=== PATIENT | female | born 1980 | race Caucasian/White ===

== ENCOUNTER 2017-01-03 07:09 | Day surgery (SDC) | payer BC ==
[~2017-01-03 07:09] MED LIST: Sodium Chloride 0.9% 10 ML Syringe FLUSH PRN; Sodium Chloride 0.9% 2.5 ML Syringe FLUSH PRN; ceFAZolin 1 GM in Premix Bag 1 BAG IV ONE
[2017-01-03] MEDS ORDERED: Scopolamine 1.5 MG Transdermal Patch TRDERM PRN (07:25)
[2017-01-03] MEDS ORDERED: fentaNYL 100 MCG/2 ML SDV ONE (07:26)
[2017-01-03] MEDS ORDERED: Rocuronium 10 MG/ML 10 ML Syringe ONE (07:26)
[2017-01-03] MEDS ORDERED: Propofol 200 MG/20 ML SDV ONE (07:26)
[2017-01-03] MEDS ORDERED: Lidocaine 2% 5 ML SDV ONE (07:26)
[2017-01-03] MEDS ORDERED: HYDROmorphone 2 MG/ML Syringe ONE (07:26)
[2017-01-03] MEDS ORDERED: Midazolam 1 MG/ML 2 ML SDV ONE (07:26)
[2017-01-03] MEDS ORDERED: Ondansetron 4 MG/2 ML SDV ONE (07:26)
[2017-01-03] MEDS ORDERED: Acetaminophen 1,000 MG in Premix Bag 1 BAG IV SCH (07:30)
[2017-01-03] MEDS ORDERED: diphenhydrAMINE 50 MG/ML SDV ONE (07:33)
[2017-01-03] MEDS ORDERED: Dexamethasone 4 MG/ML 5 ML MDV ONE (07:33)
[2017-01-03] MEDS ORDERED: Fluorescein 5 ML Vial ONE (07:36)
[2017-01-03] MEDS: Lactated Ringers 1,000 ML IV SCH ×3 (07:43→17:21)
--- NOTE | 2017-01-03 07:51 | PCM.PREANE ---
Preanesthetic Assessment - Anesthesia/Transfusion/Family Hx Anesthesia History: Prior Anesthesia Without Reaction Family History of Anesthesia Reaction: No Transfusion History: No Prior Transfusion(s) Intubation History: Unknown - Review of Systems General: No Symptoms Pulmonary: No Symptoms Cardiovascular: No Symptoms Gastrointestinal: No Symptoms Neurological: No Symptoms Other: Reports: None - Physical Assessment O2 Sat by Pulse Oximetry: 99 Respiratory Rate: 16 Vital Signs: Last Vital Signs Temp 37.2 C 01/03/17 07:31 Pulse 72 01/03/17 07:31 Resp 16 01/03/17 07:31 BP 119/78 01/03/17 07:31 Pulse Ox 99 01/03/17 07:31 Height: 1.83 m Weight: 78.471 kg ASA Class: 2 Mental Status: Alert & Oriented x3 Airway Class: Mallampati = 2 Dentition: Reports: Normal Dentition Thyro-Mental Finger Breadths: 3 Mouth Opening Finger Breadths: 3 ROM/Head Extension: Full Lungs: Clear to Auscultation, Normal Respiratory Effort Cardiovascular: Regular Rate, Regular Rhythm - Allergies Allergies/Adverse Reactions: Allergies Allergy/AdvReac Type Severity Reaction Status Date / Time No Known Allergies Allergy Verified 07/08/15 13:18 - Blood Blood Available: No - Anesthesia Plan Pre-Op Medication Ordered: None - Acknowledgements Anesthesia Type Planned: General Anesthesia Pt an Appropriate Candidate for the Planned Anesthesia: Yes Alternatives and Risks of Anesthesia Discussed w Pt/Guardian: Yes Pt/Guardian Understands and Agrees with Anesthesia Plan: Yes PreAnesthesia Questionnaire Respiratory History: Reports: Asthma Other Respiratory History: sports induced asthma in highschool Gastrointestinal History: Reports: None Genitourinary History: Reports: Hydronephrosis, Other (See Below) Other Genitourinary History: hydronephrosis during [employer] History: Reports: , Other (See Below) Other OB/BYN History: trouble with bleeding after both vaginal deliveries Neurological History: Reports: Migraines Hematologic History: Reports: Other (See Below) Other Hematologic History: trouble with bleeding after both vaginal deliveries - Past Surgical History Head Surgeries/Procedures: Reports: None GI Surgical History: Reports: Cholecystectomy Female Surgical History: Reports: Breast Implant, D&C, Other (See Below) Other Female Surgeries/Procedures: double J stent insertion and removal, suction D&C Musculoskeletal Surgical History: Reports: Arthroscopic Knee Other Musculoskeletal Surgeries/Procedures:: winston knee arthroscopy, rt ACl repair - SUBSTANCE USE Smoking Status *Q: Never Smoker Recreational Drug Use History: No - HOME MEDS Home Medications: Home Meds Topiramate [Topamax] 50 mg PO BID 12/28/16 [History] - CURRENT (IN HOUSE) MEDS Current Meds: Current Medications Acetaminophen 1,000 mg/ Premix 100 mls @ 400 mls/hr IV .ONETIME [facility] Lactated Ringer's (Ringers, Lactated) 1,000 mls @ 125 mls/hr IV ASDIRECTED [facility] Last Admin: 01/03/17 07:43 Dose: 125 mls/hr Scopolamine (Transderm-Scop) 1.5 mg TRDERM .ONCE PRN PRN Reason: Post Op Nausea Sodium Chloride (Saline Flush) 10 ml FLUSH ASDIRECTED PRN PRN Reason: Keep Vein Open Sodium Chloride (Saline Flush) 2.5 ml FLUSH ASDIRECTED PRN PRN Reason: Keep Vein Open Discontinued Medications Dexamethasone (Dexamethasone) Confirm Administered Dose 20 mg .ROUTE .STK-MED ONE Stop: 01/03/17 07:34 Diphenhydramine HCl (Benadryl) Confirm Administered Dose 50 mg .ROUTE .STK-MED ONE Stop: 01/03/17 07:34 Fentanyl (Sublimaze) Confirm Administered Dose 100 mcg .ROUTE .STK-MED ONE Stop: 01/03/17 07:27 Fluorescein Sodium (Ak-Fluor) Confirm Administered Dose 5 ml .ROUTE .STK-MED ONE Stop: 01/03/17 07:37 Hydromorphone HCl (Dilaudid) Confirm Administered Dose 2 mg .ROUTE .STK-MED ONE Stop: 01/03/17 07:27 Cefazolin Sodium/Dextrose 1 gm (/ Premix) 50 mls @ 100 mls/hr IV ONETIME ONE Stop: 01/03/17 05:29 Cefazolin Sodium/Dextrose (Ancef) Confirm Administered Dose 50 mls @ as directed .ROUTE .STK-MED ONE Stop: 01/03/17 07:34 Lidocaine (Xylocaine-Mpf 2%) Confirm Administered Dose 5 ml .ROUTE .STK-MED ONE Stop: 01/03/17 07:27 Midazolam HCl (Versed 1 Mg/Ml) Confirm Administered Dose 2 mg .ROUTE .STK-MED ONE Stop: 01/03/17 07:27 Ondansetron HCl (Zofran) Confirm Administered Dose 4 mg .ROUTE .STK-MED ONE Stop: 01/03/17 07:27 Propofol (Diprivan 20 Ml) Confirm Administered Dose 200 mg .ROUTE .STK-MED ONE Stop: 01/03/17 07:27 Rocuronium [place] (Zemuron) Confirm Administered Dose 100 mg .ROUTE .STK-MED ONE Stop: 01/03/17 07:27
[2017-01-03 08:16] LABS: CHLORIDE,CL 113 mmol/L (98-110); SODIUM,NA 139 mmol/L (136-146)
[2017-01-03] MEDS ORDERED: Ketorolac 30 MG/ML SDV ONE (08:55)
[2017-01-03] MEDS ORDERED: Furosemide 40 MG/4 ML VIAL ONE (09:31)
[2017-01-03] MEDS ORDERED: Promethazine 25 MG/ML SDV IM PRN (10:00)
[2017-01-03] MEDS ORDERED: Aluminum Hydroxide/Magnesium Hydroxide/Simethicone Susp 30 ML Cup PO PRN (10:00)
[2017-01-03] MEDS ORDERED: Ondansetron 4 MG/2 ML SDV IVPUSH PRN (10:00)
[2017-01-03] MEDS ORDERED: Morphine 2 MG/ML Syringe IVPUSH PRN (10:00)
[2017-01-03] MEDS ORDERED: Morphine 4 MG/ML Syringe IVPUSH PRN (10:00)
[2017-01-03] MEDS ORDERED: Acetaminophen/oxyCODONE 325-5 MG Tab PO PRN ×2 (10:00)
[2017-01-03] MEDS ORDERED: Ketorolac 30 MG/ML SDV IVPUSH ONE (10:00)
--- NOTE | 2017-01-03 10:09 | PCM.OPNOTE ---
- General Post-Op/Procedure Note Date of Surgery/Procedure: 01/03/17 Operative Procedure(s): Total vaginal hysterectomy/cystoscopy Findings: 8 week boggy uterus, normal appearing tubes/ovaries. Bilateral patent ureters Pre Op Diagnosis: Menorrhagia Post-Op Diagnosis: Same Anesthesia Technique: General ET Tube Primary Surgeon: Ly Quispe Senior Geotechnical Engineer: Shruti Hernandez Pathology: uterus Fluid Replacement, Intraop: 2,300 EBL in mLs: 200 Complications: None known Condition: Good Free Text/Narrative:: Dictation [id number]
[2017-01-03] MEDS: fentaNYL 100 MCG/2 ML SDV IVPUSH PRN ×2 (10:14→10:21)
--- NOTE | 2017-01-03 11:18 | PCM.POSTAN ---
POST ANESTHESIA ASSESSMENT - MENTAL STATUS Mental Status: Alert, Oriented - RESPIRATORY Respiratory Status: Respiratory Rate WNL, Airway Patent, O2 Saturation Stable - CARDIOVASCULAR CV Status: Pulse Rate WNL, Blood Pressure Stable - GASTROINTESTINAL GI Status: No Symptoms - PAIN Pain Score: 3 - POST OP HYDRATION Hydration Status: Adequate & Stable - OBSERVATIONS Free Text/Narrative:: no anesthesia problems
--- NOTE | 2017-01-03 12:57 | OR ---
SURGEON: Ly Quispe M.D. DATE OF PROCEDURE: 01/03/2017 PREOPERATIVE DIAGNOSIS: Menorrhagia. POSTOPERATIVE DIAGNOSIS: Menorrhagia. PROCEDURE: Total vaginal hysterectomy with cystoscopy. PROJECT ENGINEERING DIRECTOR: Shruti Hernandez M.D. ANESTHESIA: General endotracheal anesthesia. ESTIMATED BLOOD LOSS: 200 mL. FLUIDS: 2300 mL of crystalloid. FINDINGS: Boggy 8-week size uterus. Normal-appearing tubes and ovaries. Bilateral patent ureters postoperatively. DISPOSITION: The patient to PACU in stable condition. SPECIMENS: To pathology. INDICATION: Anastasia is a 36-year-old, G2, P2, who has ongoing difficulties with menorrhagia and actually was diagnosed with endometrial hyperplasia in 2016. At this time, she would like to proceed with definitive surgical intervention. Risks of the procedure have been discussed with her and proper consent obtained. DESCRIPTION OF PROCEDURE: The patient was taken to the operating room, where she underwent general endotracheal anesthesia, was placed in modified dorsal lithotomy position, was prepped and draped in the usual sterile fashion. SCDs to lower extremities and Thomason to gravity. Received Ancef prophylactically. Time-out was performed. After being draped in the usual sterile fashion, a weighted speculum was introduced in the vagina, as well as anterior Phyllis, and sidewall retractors. Cervix was grasped with Yayo clamps. Cervix was circumscribed with Bovie cautery. The anterior and posterior overlying mucosa were dissected away from underlying peritoneum. The posterior peritoneum was tented downward and entered sharply. The longer weighted speculum replaced the shorter. Anteriorly, the peritoneum was tented upward and entered sharply. Retractor was placed to deviate the bladder away from the operative field. Christian clamps were utilized to secure the uterosacral ligaments on either side, transected, and suture ligated with 2-0 Vicryl in serial fashion. The remainder of the base of the cardinal ligament and the bottom of the broad ligament were able to be secured, transected, and suture ligated. The mid-broad ligament incorporating the round ligament was now able to be secured, transected, and suture ligated. The remaining pedicle of the utero-tuboovarian region was able to be secured, transected, and suture ligated. Tubes and ovaries were inspected and appeared normal. The patient was quite oozy throughout all points of the surgery. The upper left pedicle had an area of persistent bleeding along the left utero-tuboovarian pedicle, this was secured with a [id number] suture. There was also another area of bleeding along the right uterosacral ligament. This was suture ligated with a figure-of- eight suture. Hemostasis was thereafter evident. Given the amount of oozing with the tissues, I did not feel it was prudent to remove the tubes at this time, and they do appear normal. The uterosacral ligament was now secured to the vaginal apex on either side. All packing was removed from the vagina. The cuff was closed using 0 Vicryl in continuous running locked fashion. The cuff was inspected and found to be hemostatic. The Thomason catheter was removed after the balloon was desufflated. IV fluorescein and Lasix were delivered, and the cystoscope was introduced using normal saline as distention media. The dome of the bladder was able to be visualized followed by the trigone. The right ureteral orifice followed by the left ureteral orifice were able to be visualized and fluorescein dyed urine was seen streaming from them, helping to ensure ureteral patency. The bladder was now drained. Catheter was replaced. The vaginal cuff was once again inspected and found to be hemostatic. The patient had tolerated the procedure well. Sponge, instrument, and needle counts were correct x2. The patient will go to PACU in a stable condition and specimens to pathology. JUSTO DAVIES /[id number] MTDRachid
[2017-01-03] MEDS: Ketorolac 30 MG/ML SDV IVPUSH PRN ×2 (15:59→22:06)
--- NOTE | 2017-01-03 18:27 | PCM.SN ---
- Free Text/Narrative Note: Patient is doing well overall. Pain is controlled, but ruvalcaba is very irritating and would like to have removed. She is tolerating regular diet, ambulated within the room. VS are stable Explained findings at time of surgery and procedure. Remove ruvalcaba this evening. Continue postoperative cares. Stable overall.
[2017-01-03] MEDS: Docusate Sodium 100 MG Cap PO SCH (22:08)
[2017-01-04] MEDS: Ketorolac 30 MG/ML SDV IVPUSH PRN ×2 (04:34→10:22)
[2017-01-04 06:30] LABS: CHLORIDE,CL 114 mmol/L (98-110); SODIUM,NA 141 mmol/L (136-146)
--- NOTE | 2017-01-04 08:51 | PCM.SURGPN ---
- General Info Date of Service: 01/04/17 POD#: 1 Functional Status: Reports: Pain Controlled, Tolerating Diet, Ambulating, Urinating - Review of Systems General: Denies: Fever, Weakness Pulmonary: Denies: Shortness of Breath Cardiovascular: Denies: Chest Pain, Palpitations, Lightheadedness Gastrointestinal: Denies: Abdominal Pain, Nausea, Vomiting Genitourinary: Denies: Flank Pain Psychiatric: Reports: No Symptoms - Patient Data Vitals - Most Recent: Last Vital Signs Temp 37.4 C 01/04/17 04:00 Pulse 62 01/04/17 04:00 Resp 15 01/04/17 04:00 BP 99/58 L 01/04/17 04:00 Pulse Ox 97 01/04/17 04:00 Weight - Most Recent: 78.471 kg I&O - Last 24 Hours: Intake & Output 01/03/17 01/04/17 01/04/17 22:59 06:59 14:59 Output Total 1500 Balance -1500 Lab Results Last 24 Hrs: Laboratory Results - last 24 hr 01/04/17 01/04/17 Range/Units 05:17 05:17 WBC 10.61 (4.0-11.0) K/uL RBC 4.02 L (4.30-5.90) M/uL Hgb 12.2 (12.0-16.0) g/dL Hct 36.6 (36.0-46.0) % MCV 91.0 (80.0-98.0) fL MCH 30.3 (27.0-32.0) pg MCHC 33.3 (31.0-37.0) g/dL RDW Std Deviation 42.1 (28.0-62.0) fl RDW Coeff of Sergey 13 (11.0-15.0) % Plt Count 192 (150-400) K/uL MPV 10.20 (7.40-12.00) fL Neut % (Auto) 67.8 (48.0-80.0) % Lymph % (Auto) 22.8 (16.0-40.0) % Borden % (Auto) 8.9 (0.0-15.0) % Eos % (Auto) 0.3 (0.0-7.0) % Baso % (Auto) 0.2 (0.0-1.5) % Neut # (Auto) 7.2 H (1.4-5.7) K/uL Lymph # (Auto) 2.4 (0.6-2.4) K/uL Borden # (Auto) 0.9 H (0.0-0.8) K/uL Eos # (Auto) 0.0 (0.0-0.7) K/uL Baso # (Auto) 0.0 (0.0-0.1) K/uL Nucleated RBC % 0.0 /100WBC Nucleated RBCs # 0 K/uL Sodium 141 (136-146) mmol/L Potassium 3.8 (3.5-5.1) mmol/L Chloride 114 H (98-110) mmol/L Carbon Dioxide 20 L (21-31) mmol/L BUN 9 (6.0-23.0) mg/dL Creatinine 0.8 (0.6-1.5) mg/dL Est Cr Clr Drug Dosing 114.35 mL/min Estimated GFR (MDRD) > 60.0 ml/min Glucose 106 (60-110) mg/dL Calcium 8.4 L (8.8-10.8) mg/dL Med Orders - Current: Current Medications Al Hydroxide/Mg Hydroxide (Mag-Al Plus) 30 ml PO Q4H PRN PRN Reason: Indigestion Docusate Sodium (Colace) 100 mg PO BID [facility] Last Admin: 01/03/17 22:08 Dose: 100 mg Fentanyl (Sublimaze) 50 mcg IVPUSH .Q5MIN PRN PRN Reason: Pain Last Admin: 01/03/17 10:21 Dose: 50 mcg Acetaminophen 1,000 mg/ Premix 100 mls @ 400 mls/hr IV .ONETIME [facility] Last Admin: 01/03/17 07:53 Dose: 400 mls/hr Lactated Ringer's (Ringers, Lactated) 1,000 mls @ 125 mls/hr IV ASDIRECTED [facility] Last Admin: 01/03/17 17:21 Dose: 125 mls/hr Ketorolac Tromethamine (Toradol) 30 mg IVPUSH Q6H PRN PRN Reason: Pain (severe 7-10) Stop: 01/08/17 16:01 Last Admin: 01/04/17 04:34 Dose: 30 mg Morphine Sulfate (Morphine) 2 mg IVPUSH Q2H PRN PRN Reason: Pain (severe 7-10) Last Admin: 01/03/17 12:24 Dose: 2 mg Morphine Sulfate (Morphine) 4 mg IVPUSH Q2H PRN PRN Reason: Pain (severe 7-10) Ondansetron HCl (Zofran) 4 mg IVPUSH Q6H PRN PRN Reason: Nausea/Vomiting Oxycodone/Acetaminophen (Percocet 325-5 Mg) 1 tab PO Q4H PRN PRN Reason: Pain (moderate 4-6) Last Admin: 01/03/17 18:02 Dose: 1 tab Oxycodone/Acetaminophen (Percocet 325-5 Mg) 2 tab PO Q4H PRN PRN Reason: Pain (moderate 4-6) Promethazine HCl (Phenergan) 25 mg IM Q6H PRN PRN Reason: Nausea/Vomiting Scopolamine (Transderm-Scop) 1.5 mg TRDERM .ONCE PRN PRN Reason: Post Op Nausea Last Admin: 01/03/17 07:53 Dose: 1.5 mg Sodium Chloride (Saline Flush) 10 ml FLUSH ASDIRECTED PRN PRN Reason: Keep Vein Open Sodium Chloride (Saline Flush) 2.5 ml FLUSH ASDIRECTED PRN PRN Reason: Keep Vein Open Discontinued Medications Dexamethasone (Dexamethasone) Confirm Administered Dose 20 mg .ROUTE .STK-MED ONE Stop: 01/03/17 07:34 Diphenhydramine HCl (Benadryl) Confirm Administered Dose 50 mg .ROUTE .STK-MED ONE Stop: 01/03/17 07:34 Fentanyl (Sublimaze) Confirm Administered Dose 100 mcg .ROUTE .STK-MED ONE Stop: 01/03/17 07:27 Fluorescein Sodium (Ak-Fluor) Confirm Administered Dose 5 ml .ROUTE .STK-MED ONE Stop: 01/03/17 07:37 Furosemide (Lasix) Confirm Administered Dose 40 mg .ROUTE .STK-MED ONE Stop: 01/03/17 09:32 Hydromorphone HCl (Dilaudid) Confirm Administered Dose 2 mg .ROUTE .STK-MED ONE Stop: 01/03/17 07:27 Cefazolin Sodium/Dextrose 1 gm (/ Premix) 50 mls @ 100 mls/hr IV ONETIME ONE Stop: 01/03/17 05:29 Last Admin: 01/04/17 00:42 Dose: Not Given Cefazolin Sodium/Dextrose (Ancef) Confirm Administered Dose 50 mls @ as directed .ROUTE .STK-MED ONE Stop: 01/03/17 07:34 Ketorolac Tromethamine (Toradol) Confirm Administered Dose 30 mg .ROUTE .STK- MED ONE Stop: 01/03/17 08:56 Ketorolac Tromethamine (Toradol) 30 mg IVPUSH ONETIME ONE Stop: 01/03/17 10:01 Lidocaine (Xylocaine-Mpf 2%) Confirm Administered Dose 5 ml .ROUTE .STK-MED ONE Stop: 01/03/17 07:27 Midazolam HCl (Versed 1 Mg/Ml) Confirm Administered Dose 2 mg .ROUTE .STK-MED ONE Stop: 01/03/17 07:27 Ondansetron HCl (Zofran) Confirm Administered Dose 4 mg .ROUTE .STK-MED ONE Stop: 01/03/17 07:27 Propofol (Diprivan 20 Ml) Confirm Administered Dose 200 mg .ROUTE .STK-MED ONE Stop: 01/03/17 07:27 Rocuronium [place] (Zemuron) Confirm Administered Dose 100 mg .ROUTE .STK-MED ONE Stop: 01/03/17 07:27 - Exam General: Alert, Oriented Lungs: Normal Respiratory Effort Cardiovascular: Regular Rate, Regular Rhythm GI/Abdominal Exam: Soft, Non-Tender Extremities: No: Sil's Sign Skin: Warm, Dry, Intact Psy/Mental Status: Alert, Normal Affect - Problem List & Annotations (1) Menorrhagia SNOMED Code(s): 463351112 Code(s): N92.0 - EXCESSIVE AND FREQUENT MENSTRUATION WITH REGULAR CYCLE Status: Acute Current Visit: Yes - Problem List Review Problem List Initiated/Reviewed/Updated: Yes - My Orders Last 24 Hours: Active Orders 24 hr Category Date Time Status Patient Status [ADT] Routine ADT 01/03/17 10:00 Active Antiembolic Devices [RC] PER UNIT ROUTINE Care 01/03/17 10:00 Active May Shower [RC] ASDIRECTED Care 01/03/17 10:00 Active Notify Provider Intake and Out [RC] ASDIRECTED Care 01/03/17 10:00 Active Notify Provider Vital Signs [RC] ASDIRECTED Care 01/03/17 10:00 Active Oxygen Therapy [RC] ASDIRECTED Care 01/03/17 10:00 Active RT Incentive Spirometry [RC] Q2HWA Care 01/03/17 10:00 Active Ready for Discharge [RC] PER UNIT ROUTINE Care 01/04/17 08:49 Ordered Up With Assistance [RC] PER UNIT ROUTINE Care 01/03/17 10:00 Active Up ad Naima [RC] PER UNIT ROUTINE Care 01/03/17 10:00 Active Urinary Catheter Removal [RC] Per Unit Routine Care 01/03/17 10:00 Active Vital Signs [RC] PER UNIT ROUTINE Care 01/03/17 10:00 Active Regular Diet [DIET] Diet 01/03/17 Lunch Active Acetaminophen/oxyCODONE [Percocet 325-5 MG] Med 01/03/17 10:00 Active 1 tab PO Q4H PRN Acetaminophen/oxyCODONE [Percocet 325-5 MG] Med 01/03/17 10:00 Active 2 tab PO Q4H PRN Alum Hydrox/Mag Hydrox/Simeth [Mag-Al Plus] Med 01/03/17 10:00 Active 30 ml PO Q4H PRN Docusate Sodium [Colace] Med 01/03/17 21:00 Active 100 mg PO BID Ketorolac [Toradol] Med 01/03/17 16:00 Active 30 mg IVPUSH Q6H PRN Morphine Med 01/03/17 10:00 Active 2 mg IVPUSH Q2H PRN Morphine Med 01/03/17 10:00 Active 4 mg IVPUSH Q2H PRN Ondansetron [Zofran] Med 01/03/17 10:00 Active 4 mg IVPUSH Q6H PRN Promethazine [Phenergan] Med 01/03/17 10:00 Active 25 mg IM Q6H PRN fentaNYL [Sublimaze] Med 01/03/17 09:09 Active 50 mcg IVPUSH .Q5MIN PRN Ice Therapy [OM.PC] Per Unit Routine Oth 01/03/17 10:01 Ordered Peripheral IV Discontinue [OM.PC] Routine Oth 01/03/17 10:00 Ordered Sequential Compression Device [OM.PC] Per Unit Routine Oth 01/03/17 10:00 Ordered Resuscitation Status Routine Resus Stat 01/03/17 10:00 Ordered Medication Orders Al Hydroxide/Mg Hydroxide (Mag-Al Plus) 30 ml PO Q4H PRN PRN Reason: Indigestion Docusate Sodium (Colace) 100 mg PO BID [facility] Last Admin: 01/03/17 22:08 Dose: 100 mg Fentanyl (Sublimaze) 50 mcg IVPUSH .Q5MIN PRN PRN Reason: Pain Last Admin: 01/03/17 10:21 Dose: 50 mcg Admin: 01/03/17 10:14 Dose: 50 mcg Acetaminophen 1,000 mg/ Premix 100 mls @ 400 mls/hr IV .ONETIME [facility] Last Admin: 01/03/17 07:53 Dose: 400 mls/hr Lactated Ringer's (Ringers, Lactated) 1,000 mls @ 125 mls/hr IV ASDIRECTED [facility] Last Admin: 01/03/17 17:21 Dose: 125 mls/hr Infusion: 01/03/17 17:21 Dose: 125 mls/hr Admin: 01/03/17 12:20 Dose: 125 mls/hr Infusion: 01/03/17 12:20 Dose: 125 mls/hr Admin: 01/03/17 07:43 Dose: 125 mls/hr Ketorolac Tromethamine (Toradol) 30 mg IVPUSH Q6H PRN PRN Reason: Pain (severe 7-10) Stop: 01/08/17 16:01 Last Admin: 01/04/17 04:34 Dose: 30 mg Admin: 01/03/17 22:06 Dose: 30 mg Admin: 01/03/17 15:59 Dose: 30 mg Morphine Sulfate (Morphine) 2 mg IVPUSH Q2H PRN PRN Reason: Pain (severe 7-10) Last Admin: 01/03/17 12:24 Dose: 2 mg Morphine Sulfate (Morphine) 4 mg IVPUSH Q2H PRN PRN Reason: Pain (severe 7-10) Ondansetron HCl (Zofran) 4 mg IVPUSH Q6H PRN PRN Reason: Nausea/Vomiting Oxycodone/Acetaminophen (Percocet 325-5 Mg) 1 tab PO Q4H PRN PRN Reason: Pain (moderate 4-6) Last Admin: 01/03/17 18:02 Dose: 1 tab Oxycodone/Acetaminophen (Percocet 325-5 Mg) 2 tab PO Q4H PRN PRN Reason: Pain (moderate 4-6) Promethazine HCl (Phenergan) 25 mg IM Q6H PRN PRN Reason: Nausea/Vomiting Scopolamine (Transderm-Scop) 1.5 mg TRDERM .ONCE PRN PRN Reason: Post Op Nausea Last Admin: 01/03/17 07:53 Dose: 1.5 mg Sodium Chloride (Saline Flush) 10 ml FLUSH ASDIRECTED PRN PRN Reason: Keep Vein Open Sodium Chloride (Saline Flush) 2.5 ml FLUSH ASDIRECTED PRN PRN Reason: Keep Vein Open - Assessment Assessment (Free Text/Narrative):: POD 1 status post TVH/cystoscopy - Plan Plan (Free Text/Narrative):: Doing well overall, feels ready to go home. Discharge instructions reviewed. Infection and bleeding warnings reviewed. Follow up at [facility] 2 and 6 weeks. Discharge to home today.
[2017-01-04] MEDS: Docusate Sodium 100 MG Cap PO SCH (10:21)
--- NOTE | 2017-01-04 12:04 | PCM48HPAN ---
Post Anesthesia Note - EVALUATION WITHIN 48HRS OF ANESTHETIC Vital Signs in Normal Range: Yes Patient Participated in Evaluation: No (per RN) Respiratory Function Stable: Yes Airway Patent: Yes Cardiovascular Function Stable: Yes Hydration Status Stable: Yes Pain Control Satisfactory: Yes Nausea and Vomiting Control Satisfactory: Yes Mental Status Recovered: Yes
== END 2017-01-04 07:08 | disposition home or self-care (01) ==
LOC: MW.SDS 07:09 → MW.OB 10:06 → UNDOADMOB 10:06 → MW.SDS 01-04 07:08 → MW.OB 01-04 10:39 → UNDODISOB 01-04 10:55
PROVIDERS: ATTEND Obstetrics & Gynecology
DX: N80.0 Endometriosis of uterus (principal); N72 Inflammatory disease of cervix uteri; G43.909 Migraine, unspecified, not intractable, without status migrainosus; Z98.890 Other specified postprocedural states; Z79.899 Other long term (current) drug therapy; Z90.49 Acquired absence of other specified parts of digestive tract; Z98.82 Breast implant status
CPT/HCPCS: 36415; 58260; 80048; 84703; 85025; 85027; 86850; 86900; 86901; 88307; A9270; J0690; J1100; J1170; J1200; J1885; J1940; J2250; J2270; J2405; J3010; J7120; 00944; J2704